=== PATIENT | male | born 1965 | race Caucasian/White ===

== ENCOUNTER 2016-12-10 23:13 | Emergency (ER) | payer OTHER ==
--- NOTE | ~2016-12-10 | CR93 ---
[facility] A Service of [facility] & [facility] RADIOLOGY TEXT RESULTS PATIENT: KONRAD REBOLLAR LOCATION: [facility] : 69 UNIT #: [id number] AGE: [address]: Christie Brownlee APRN SEX: M ORDER DR: [id number] [facility] [address] [place], [place] [address] [id number] MR#: [id number] #: [id number] NAME: KONRAD REBOLLAR : 1965 SEX: M STUDY DATE/TIME: 12/11/2016 1:59 UNIT: [facility] ROOM: STUDY DESCRIPTION: CR Elbow Min 3 Views Lt Attending Physician: Christie Brownlee A.P.R.N. Ordering Physician: Christie Brownlee A.P.R.N. Primary Care Physician: No Primary Care Physician MEDICAL IMAGING REPORT This report is preliminary unless electronic signature is present EXAM Left elbow, 3 views. HISTORY Pain and swelling over posterior elbow after puncture wound yesterday following fall. FINDINGS Three views of the left elbow demonstrate soft tissue injury along the posterior margin of the elbow. Bone alignment is normal. No fracture or effusion. Minimal hypertrophic changes. IMPRESSION 1. No fracture. 2. Superficial soft tissue injury along the posterior elbow. Dictated by... Donnie Restrepo M.D. THIS IS AN ELECTRONICALLY VERIFIED REPORT Donnie Restrepo M.D. at 12/11/2016 4:40 AM DENISE/pedro TD: 12/11/2016 02:15 JOB #: [id number] MEDICAL IMAGING REPORT Page 1 of 1 COPY
[~2016-12-10 23:13] MED LIST: ACETAMINOPHEN650 M1 PO
== END 2016-12-11 02:27 | disposition home or self-care (01) ==
LOC: CFTX 23:13 → CED 23:13 → CFTX 23:59
DX: S51.032A Puncture wound without foreign body of left elbow, initial encounter (principal); Z23 Encounter for immunization; W19.XXXA Unspecified fall, initial encounter; Z88.0 Allergy status to penicillin
CPT/HCPCS: 73080; 90471; 90715; 99281